=== PATIENT | female | born 1985 | race Caucasian/White ===

== ENCOUNTER 2024-11-23 09:31 | Emergency (ER) | payer MEDICAID ==
[2024-11-23] MEDS ORDERED: Acetaminophen 500 MG TAB ONE (09:46)
== END 2024-11-23 10:30 | disposition home or self-care (01) ==
LOC: MADERS 09:31
DX: J11.1 Influenza due to unidentified influenza virus with other respiratory manifestations (principal); J02.0 Streptococcal pharyngitis
CPT/HCPCS: 87428; 87430; 99283

== ENCOUNTER 2024-12-21 10:18 | Emergency (ER) | payer MEDICAID | END 2024-12-21 12:00 | disposition home or self-care (01) | LOC: MADERS 10:18 | DX: J06.9 Acute upper respiratory infection, unspecified (principal) | CPT/HCPCS: 87428; 99283 ==

== ENCOUNTER 2025-10-15 12:31 | Emergency (ER) | payer OTHER, SELFPAY | END 2025-10-15 13:12 | disposition home or self-care (01) | LOC: MADERS 12:31 | DX: K04.7 Periapical abscess without sinus (principal); K02.9 Dental caries, unspecified; K08.89 Other specified disorders of teeth and supporting structures; E66.9 Obesity, unspecified; F17.290 Nicotine dependence, other tobacco product, uncomplicated | CPT/HCPCS: 99282 ==

== ENCOUNTER 2025-11-15 15:57 | Emergency (ER) | payer OTHER ==
[2025-11-15 17:51] LABS: Glucose, Urine (Dipstick) Negative (Negative); Leukocyte Negative (Negative); Protein, Urine (Dipstick) Negative (Neg-Trace); Specific Gravity, Urine 1.020 (1.005-1.030)
[2025-11-15 17:53] LABS: Bacteria/HPF 1+ HPF (None Seen); CAUTI Indications for Culture Pelvic or flank pain; RBC/HPF None Seen HPF (0-3); WBC/HPF 0-3 HPF (0-3)
[2025-11-15 17:55] LABS: Urine Culture Reflex No No
[2025-11-15] MEDS ORDERED: cefTRIAXone (ROCEPHIN) 1 GM VIAL ONE (18:12)
[2025-11-15] MEDS ORDERED: predniSONE 20 MG TAB ONE (18:12)
[2025-11-15 18:31] LABS: Pregnancy Test - Urine (BHCG) Negative (Negative); Pregu Control Background? CLEAR/WHITE (CLR/WHITE); Pregu Control Bar Appear? YES (CONTROL BAR)
== END 2025-11-15 18:35 | disposition home or self-care (01) ==
LOC: MADERS 15:57
DX: R51.9 Headache, unspecified (principal); J02.9 Acute pharyngitis, unspecified; N10 Acute pyelonephritis; E86.0 Dehydration; M79.10 Myalgia, unspecified site; E66.9 Obesity, unspecified; F17.290 Nicotine dependence, other tobacco product, uncomplicated
CPT/HCPCS: 81001; 81025; 87081; 87428; 87430; 96372; 99284; J0696; J1885; J7512

== ENCOUNTER 2025-11-25 14:36 | Emergency (ER) | payer OTHER ==
[2025-11-25] MEDS ORDERED: Ibuprofen 800 MG TAB ONE (14:52)
== END 2025-11-25 16:30 | disposition home or self-care (01) ==
LOC: MADERS 14:36
DX: S93.602A Unspecified sprain of left foot, initial encounter (principal); S39.012A Strain of muscle, fascia and tendon of lower back, initial encounter; E66.9 Obesity, unspecified; F17.290 Nicotine dependence, other tobacco product, uncomplicated; W18.2XXA Fall in (into) shower or empty bathtub, initial encounter
CPT/HCPCS: 99283